=== PATIENT | female | born 1985 ===

== ENCOUNTER 2017-04-20 07:39 | Emergency (ER) | payer OTHER ==
[2017-04-20] MEDS ORDERED: Sodium Chloride 0.9% 1,000 ML IV STA (07:58)
[2017-04-20] MEDS ORDERED: Sodium Chloride 0.9% 1,000 ML ONE (08:05)
[2017-04-20 08:18] LABS: RBC URINE < 1 /hpf (0-3); URINE BILIRUBIN NEGATIVE (NEGATIVE); URINE BLOOD NEGATIVE (NEGATIVE); URINE COLOR Yellow (YELLOW); URINE GLUCOSE (UA) NORMAL (Normal); URINE KETONE NEGATIVE (NEGATIVE); URINE LEUKOCYTE ESTERASE NEG Leu/uL (Negative); URINE PROTEIN NEGATIVE (NEGATIVE); URINE UROBILINOGEN NORMAL mg/dL (0.2-1.0); WBC URINE 1 /hpf (0-5)
[2017-04-20 08:34] LABS: BASO % 0.4 % (0.0-2.0); EOS # 0.1 K/uL (0.0-0.7); EOS % 1.3 % (0.0-4.0); MEAN CELL VOLUME 88.7 fL (81.0-99.0); MEAN CORPUSCULAR HEMOGLOBIN 29.3 pg (27.0-31.0); MONO # 0.4 K/uL (0.0-0.8); RED CELL DISTRIBUTION WIDTH 12.6 % (11.5-14.5)
[2017-04-20 09:38] LABS: CHLORIDE 105 mmol/L (98-107); POTASSIUM 4.1 mmol/L (3.6-5.2); SODIUM 135 mmol/L (132-148)
[2017-04-20 09:40] LABS: BILIRUBIN,TOTAL 0.7 mg/dL (0.2-1.3); CARBON DIOXIDE 22 mmol/L (22-30); GFR AFRICAN-AMERICAN > 60
[2017-04-20 09:41] LABS: ALB/GLOB RATIO 1.3 (1.0-2.1); ALKALINE PHOSPHATASE 67 U/L (38-126); ALT/SGPT 32 U/L (9-52); AST/SGOT 20 U/L (14-36); BLOOD UREA NITROGEN 11 mg/dL (7-17); CALCIUM 8.1 mg/dl (8.6-10.4); GLUCOSE,RANDOM 81 mg/dL (65-105); TOTAL PROTEIN 6.9 g/dL (6.3-8.3)
[2017-04-20 09:57] VITALS: RESP 18; O2SAT 100
--- NOTE | 2017-04-20 11:23 | C.PDOC ---
History Of Present Illness 31 year old female presents to the ED for evaluation of nausea, vomiting, and upper abdominal pain since last night. 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 No other acute complaint at this time. Chief Complaint (Nursing): Abdominal Pain History Per: Patient History/Exam Limitations: no limitations Onset/Duration Of Symptoms: Hrs Location Of Pain/Discomfort: Epigastric Associated Symptoms: Nausea, Vomiting Past Medical History Reviewed: Historical Data, Nursing Documentation, Vital Signs Vital Signs: Last Vital Signs Temp 98.6 F 04/20/17 11:30 Pulse 69 04/20/17 11:30 Resp 18 04/20/17 11:30 BP 105/68 04/20/17 11:30 Pulse Ox 100 04/20/17 15:49 Family History: States: Unknown Family Hx - Social History Hx Alcohol Use: No Hx Substance Use: No - Immunization History Hx Influenza Vaccination: No Review Of Systems Constitutional: Negative for: Fever Gastrointestinal: Positive for: Nausea, Vomiting, Abdominal Pain Physical Exam - Physical Exam Appears: Non-toxic, No Acute Distress Skin: Normal Color, Warm, Dry Head: Atraumatic, Normacephalic Eye(s): bilateral: Normal Inspection, PERRL, EOMI Cardiovascular: Rhythm Regular (Regular Rate) Respiratory: Normal Breath Sounds Gastrointestinal/Abdominal: Soft, Tenderness (epigastric tenderness), No Guarding, No Rebound Neurological/Psych: Oriented x3, Normal Speech ED Course And Treatment - Laboratory Results Result Diagrams: 04/20/17 08:22 04/20/17 09:25 O2 Sat by Pulse Oximetry: 100 Medical Decision Making Medical Decision Makin04/20/17 08:00 Patient given IV fluids, zofran, and protonix On re-exam patient is feeling improved. Will discharge home. Disposition - Disposition Disposition: HOME/ ROUTINE Disposition Time: 11:36 Condition: IMPROVED Additional Instructions: Follow up with PMD within 1-2 days. Return to ED if feel worse. Prescriptions: Famotidine [Pepcid] 20 mg PO BID #20 tab Ondansetron ODT [Zofran ODT] 4 mg PO .Q4-6H PRN #20 odt PRN Reason: Nausea/Vomiting Instructions: Acute Abdominal Pain (ED) Forms: [employer] (Slovenian), Work Excuse - Clinical Impression Clinical Impression: Abdominal pain, Nausea, Vomiting - Scribe Statement The provider has reviewed the documentation as recorded by the Scribleah Barton
[2017-04-20 11:31] VITALS: BP 105/68; PULSE 69; TEMP 98.6
--- NOTE | 2017-04-20 13:13 | RAD ---
PROCEDURE: Radiographs of the chest and abdomen (obstructive series) HISTORY: vomiting COMPARISON: No prior. TECHNIQUE: AP radiograph of the chest, with upright and supine radiographs of the abdomen. FINDINGS: CHEST: Lungs: Clear. Cardiovascular: Normal size heart. No pulmonary vascular congestion. Pleura: No pleural fluid. No pneumothorax. Other findings: None. ABDOMEN AND PELVIS: Bowel: Unremarkable bowel gas pattern. No evidence of mechanical obstruction. Free air: None. Bones: Unremarkable. Other findings: None. IMPRESSION: Unremarkable radiographs of chest and abdomen. No evidence of mechanical bowel obstruction.
== END 2017-04-20 11:46 | disposition home or self-care (01) ==
LOC: C.ER 07:39
DX: R10.9 Unspecified abdominal pain (principal); R11.2 Nausea with vomiting, unspecified
CPT/HCPCS: 74022; 80053; 81001; 83690; 84703; 85025; 96361; 96374; 96375; 99285; C9113; J2405; J7040

== ENCOUNTER 2017-04-23 09:37 | Emergency (ER) | payer OTHER ==
[2017-04-23 09:53] VITALS: TEMP 98; O2SAT 100
[2017-04-23] MEDS ORDERED: Silver Sulfadiazine 1% Cream (20 gm) TOP STA (10:26)
[2017-04-23] MEDS ORDERED: Naproxen 550 mg Tab PO STA (10:26)
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
[2017-04-23] MEDS ORDERED: Naproxen 550 mg Tab PO ONE (10:31)
[2017-04-23 11:14] VITALS: BP 110/68; PULSE 69; RESP 20
== END 2017-04-23 11:14 | disposition home or self-care (01) ==
LOC: C.ER 09:37
DX: T23.141A Burn of first degree of multiple right fingers (nail), including thumb, initial encounter (principal); X08.8XXA Exposure to other specified smoke, fire and flames, initial encounter

== ENCOUNTER 2017-12-21 21:36 | Emergency (ER) | payer OTHER ==
[2017-12-21] MEDS ORDERED: Sodium Chloride 0.9% 1,000 ML IV ONE (22:07)
--- NOTE | 2017-12-21 22:07 | C.PDOC ---
History Of Present Illness patient presents with right lower quadrant discomfort , dysuria,since yesterday. No f/c/n/v. Dull, aching discomfort. Tolerating po. No change in bowel habits Time Seen by Provider: 12/21/17 22:07 Chief Complaint (Nursing): Abdominal Pain History Per: Patient History/Exam Limitations: no limitations Onset/Duration Of Symptoms: Days Current Symptoms Are (Timing): Still Present Context: Other Severity: Moderate Pain Scale Rating Of: 4 Location Of Pain/Discomfort: RLQ Radiation Of Pain To:: None Quality Of Discomfort: Dull, Cramping Associated Symptoms: denies: Fever, Chills Exacerbating Factors: None Alleviating Factors: None Last Bowel Movement: Today Recent travel outside of the [place]: No Additional History Per: Patient Abnormal Vaginal Bleeding: No Past Medical History Reviewed: Historical Data, Nursing Documentation, Vital Signs Vital Signs: Last Vital Signs Temp 98.8 F 12/22/17 01:17 Pulse 77 12/22/17 01:17 Resp 16 12/22/17 01:17 BP 110/70 12/22/17 01:17 Pulse Ox 100 12/22/17 01:22 - Medical History PMH: Denies: Chronic Kidney Disease Family History: States: Unknown Family Hx - Social History Hx Alcohol Use: Yes Hx Substance Use: No - Immunization History Hx Tetanus Toxoid Vaccination: No Hx Influenza Vaccination: No Hx Pneumococcal Vaccination: No Review Of Systems Constitutional: Negative for: Fever, Chills Cardiovascular: Negative for: Chest Pain Respiratory: Negative for: Shortness of Breath Gastrointestinal: Positive for: Abdominal Pain. Negative for: Nausea Genitourinary: Positive for: Dysuria Musculoskeletal: Negative for: Back Pain Skin: Negative for: Rash Neurological: Negative for: Weakness Psych: Negative for: Anxiety Physical Exam - Physical Exam Appears: Non-toxic, No Acute Distress Skin: Warm, Dry Head: Normacephalic Eye(s): bilateral: Normal Inspection Oral Mucosa: Moist Neck: Supple Chest: Symmetrical Cardiovascular: Rhythm Regular Respiratory: No Rales, No Rhonchi, No Wheezing Gastrointestinal/Abdominal: Soft, Tenderness (rlq), No Distention, No Guarding, No Rebound Back: Normal Inspection Extremity: Normal ROM Extremity: Bilateral: Atraumatic Pulses: Left Dorsalis Pedis: Normal, Right Dorsalis Pedis: Normal Neurological/Psych: Oriented x3 Gait: Steady ED Course And Treatment - Laboratory Results Result Diagrams: 12/21/17 22:25 12/21/17 22:25 O2 Sat by Pulse Oximetry: 100 Pulse Ox Interpretation: Normal Progress Note: pt was seen by the residential sales consultant. spoke with the patient at length regarding the labs and ct scan results. Pt wants to go home and will return if symtoms recur. Encouraged to return in 12-24 hours if she develops pain, fever, chills or just not feeling much better. patient is in agreement with the treatment plan Reevaluation Time: 02:36 Reassessment Condition: Improved Disposition Counseled Patient/Family Regarding: Studies Performed, Diagnosis, Need For Followup, Rx Given - Disposition Referrals: [facility] [facility] [Outside] [facility] [Outside] Erick Aguirre MD [Staff Provider] - Disposition: HOME/ ROUTINE Disposition Time: 22:07 Condition: FAIR Additional Instructions: Please return within 12-24 hours if not feeling better or the pain recurs Prescriptions: metroNIDAZOLE IV 500 mg/100 ml [Flagyl IV] 500 mg IV QID #28 bag Naproxen [Naprosyn] 1 tab PO BID PRN #25 tab PRN Reason: Pain Instructions: Acute Abdomen (Belly Pain), Adult (DC) Forms: [facility] (Urdu), Work Excuse - Clinical Impression Clinical Impression: Abdominal pain
[2017-12-21 22:09] LABS: HCG,QUALITATIVE URINE NEGATIVE (NEGATIVE)
[2017-12-21 22:11] LABS: SQUAMOUS EPITHIAL < 1 /hpf (0-5); URINE BILIRUBIN NEGATIVE (NEGATIVE); URINE BLOOD NEGATIVE (NEGATIVE); URINE CLARITY Clear (Clear); URINE COLOR Amber (YELLOW); URINE GLUCOSE (UA) NORMAL (Normal); URINE LEUKOCYTE ESTERASE NEG Leu/uL (Negative); URINE PROTEIN NEGATIVE (NEGATIVE)
[2017-12-21 22:27] LABS: BASO # 0.1 K/uL (0.0-0.2); BASO % 0.6 % (0.0-2.0); EOS % 0.1 % (0.0-4.0); HEMOGLOBIN 12.2 g/dL (11.0-16.0); LYMPH % 13.6 % (20.0-40.0); MEAN CORPUSCULAR HEMOGLOBIN 28.8 pg (27.0-31.0); MEAN CORPUSCULAR HGB CONC 33.1 g/dL (33.0-37.0); MEAN PLATELET VOLUME 8.2 fL (7.2-11.7); MONO # 0.6 K/uL (0.0-0.8); NEUT # 11.9 K/uL (1.8-7.0); NEUT % 81.7 % (50.0-75.0); RBC 4.25 Mil/uL (3.80-5.20); RED CELL DISTRIBUTION WIDTH 12.5 % (11.5-14.5); WHITE BLOOD COUNT 14.5 K/uL (4.8-10.8)
[2017-12-21] MEDS ORDERED: Piperacillin/Tazobact 3.375 gm 100 ML IVPB STA (22:31)
[2017-12-21] MEDS ORDERED: Sodium Chloride 0.9% 1,000 ML ONE (22:32)
[2017-12-21 22:40] LABS: ALB/GLOB RATIO 1.4 (1.0-2.1); ALBUMIN 4.4 g/dL (3.5-5.0); ALT/SGPT 25 U/L (9-52); AST/SGOT 23 U/L (14-36); BLOOD UREA NITROGEN 10 mg/dL (7-17); CALCIUM 9.3 mg/dl (8.6-10.4); GFR AFRICAN-AMERICAN > 60; GFR NON-AFRICAN AMERICAN > 60; LIPASE 52 U/L (23-300)
[2017-12-21 22:42] LABS: VENOUS BLOOD GAS BASE EXCESS 1.7 mmol/L (0.0-2.0); VENOUS BLOOD GAS PCO2 45 mmHg (40-60); VENOUS BLOOD GAS PO2 21 mm/Hg (30-55); VENOUS BLOOD PH 7.39 (7.32-7.43)
[2017-12-21] MEDS ORDERED: Piperacillin/Tazobact 3.375 gm 100 ML IVPB ONE (22:43)
[2017-12-21] MEDS ORDERED: Iohexol 350mg/ml 100 ML ONE (22:53)
[2017-12-22 01:18] VITALS: RESP 16
[2017-12-22] MEDS ORDERED: Sodium Chloride 0.9% 500 ML IV ONE ×2 (01:27→01:32)
[2017-12-22] MEDS ORDERED: Magnesium Citrate Oral SOL (300 ml) PO ONE (02:48)
[2017-12-22 02:49] VITALS: BP 104/68; PULSE 66; TEMP 97.8; O2SAT 99
[2017-12-22] MEDS ORDERED: Magnesium Citrate Oral SOL (300 ml) ONE (02:52)
--- NOTE | 2017-12-22 09:14 | CT ---
PROCEDURE: CT Abdomen and Pelvis with contrast HISTORY: rlq and pain COMPARISON: None. TECHNIQUE: Contrast dose: 100 mL Omnipaque 350 Radiation dose: Total exam DLP = 331.82 mGy-cm. This CT exam was performed using one or more of the following dose reduction techniques: Automated exposure control, adjustment of the mA and/or kV according to patient size, and/or use of iterative reconstruction technique. FINDINGS: LOWER THORAX: Unremarkable. LIVER: Unremarkable. No gross lesion or ductal dilatation. GALLBLADDER AND BILE DUCTS: Unremarkable. PANCREAS: Unremarkable. No gross lesion or ductal dilatation. SPLEEN: Unremarkable. ADRENALS: Unremarkable. No mass. KIDNEYS AND URETERS: Unremarkable. No hydronephrosis. No solid mass. VASCULATURE: Unremarkable. No aortic aneurysm. BOWEL: Unremarkable. No obstruction. No gross mural thickening. APPENDIX: Not visualized. No secondary findings. There is very mild stranding or ill-defined increased attenuation of the mesenteric fat distal to the cecal apex, uncertain significance. In the absence of a distended appendix, this is not likely significant for acute appendicitis. PERITONEUM: Unremarkable. No free fluid. No free air. LYMPH NODES: No retroperitoneal or pelvic lymphadenopathy. There are shotty subcentimeter lymph nodes seen in the small bowel mesenteric and medial to the cecum/ascending colon. This may reflect a nonspecific mesenteric adenitis. Correlate clinically. BLADDER: Unremarkable. REPRODUCTIVE: Normal uterus BONES: No acute fracture. OTHER FINDINGS: None. IMPRESSION: Possible mesenteric adenitis. Mild stranding of the fat distal to the cecal apex without evidence of a distended appendix. Appendix not identified. No other significant abnormality is identified. Preliminary interpretation of this examination was reported by [employer] at 12:56 a.m. on 12/22/2017. There is discordance of this report with the preliminary interpretation. Mesenteric adenitis was not discussed in the preliminary report of this examination.
== END 2017-12-22 03:01 | disposition home or self-care (01) ==
LOC: C.ER 21:36
DX: R10.31 Right lower quadrant pain (principal)
CPT/HCPCS: 74177; 80053; 81001; 82803; 83690; 84703; 85025; 87086; 96365; 96375; 99285; J1885; J2270; J2405; J2543; J7030; J7040; Q9967

== ENCOUNTER 2017-12-22 17:00 | Inpatient (IN) | payer OTHER ==
[2017-12-22 18:09] LABS: BASO % 0.3 % (0.0-2.0); EOS # 0.1 K/uL (0.0-0.7); EOS % 0.9 % (0.0-4.0); LYMPH # 2.1 K/uL (1.0-4.3); LYMPH % 26.1 % (20.0-40.0); MEAN CELL VOLUME 87.4 fL (81.0-99.0); MEAN CORPUSCULAR HGB CONC 33.2 g/dL (33.0-37.0); MEAN PLATELET VOLUME 8.9 fL (7.2-11.7); MONO # 0.4 K/uL (0.0-0.8); MONO % 5.2 % (0.0-10.0); NEUT # 5.4 K/uL (1.8-7.0); NEUT % 67.5 % (50.0-75.0); NRBC % 0.1 % (0.0-2.0); RBC 4.14 Mil/uL (3.80-5.20); RED CELL DISTRIBUTION WIDTH 12.2 % (11.5-14.5)
[2017-12-22 18:21] LABS: INR 1.2; PROTHROMBIN TIME 13.5 SECONDS (9.7-12.2)
--- NOTE | 2017-12-22 18:25 | C.PDOC ---
History Of Present Illness <Jorge Escalante - Last Filed: 12/22/17 18:22> <Cathi Duong - Last Filed: 12/22/17 22:20> 32 y/o F p/w abdominal pain x 2 days. Pain is RLQ, associated with nausea. Was in this ED yesterday, had CT and seen by Surgery for possible appendicitis. Patient wished to go home, pain became worse with worsening nausea and she returned. Denies fever, dysuria, vomiting. (Jorge Escalante) <Jorge Escalante - Last Filed: 12/22/17 18:22> <Cathi Duong - Last Filed: 12/22/17 22:20> Time Seen by Provider: 12/22/17 17:22 Chief Complaint (Nursing): Abdominal Pain Past Medical History - Medical History PMH: Denies: Chronic Kidney Disease Family History: States: Unknown Family Hx - Social History Hx Alcohol Use: No Hx Substance Use: No - Immunization History Hx Tetanus Toxoid Vaccination: No Hx Influenza Vaccination: No Hx Pneumococcal Vaccination: No <Jorge Escalante - Last Filed: 12/22/17 18:22> Vital Signs: Last Vital Signs Temp 98.4 F 12/22/17 17:06 Pulse 75 12/22/17 17:06 Resp 20 12/22/17 17:06 BP 115/75 12/22/17 17:06 Pulse Ox 100 12/22/17 18:25 Review Of Systems Except As Marked, All Systems Reviewed And Found Negative. Constitutional: Negative for: Fever Cardiovascular: Negative for: Chest Pain <Jorge Escalante - Last Filed: 12/22/17 18:22> Physical Exam <Jorge Escalante - Last Filed: 12/22/17 18:22> <Cathi Duong - Last Filed: 12/22/17 22:20> - Physical Exam Additional Physical Exam Comments: Gen: NAD Head: NC/AT Eyes: No scleral icterus ENT: MMM Neck: Supple Chest: No tenderness CV: Regular rate Lungs: CTA b/l Abd: RLQ tenderness with guarding Back: No CVA tenderness Extremities: No edema Skin: No rash Neuro: Alert, no focal deficit (Jorge Escalante) ED Course And Treatment - Laboratory Results Result Diagrams: 12/22/17 18:05 O2 Sat by Pulse Oximetry: 100 <Jorge Escalante - Last Filed: 12/22/17 18:22> - Laboratory Results Result Diagrams: 12/22/17 18:05 12/22/17 18:05 <RhodaCathi - Last Filed: 12/22/17 22:20> Medical Decision Making <Jorge Escalante - Last Filed: 12/22/17 18:22> <Cathi Duong - Last Filed: 12/22/17 22:20> Medical Decision Making: Will repeat labs. CT from yesterday did not show appendix and showed possible appendicitis. vice president global advertising sales called for re-evaluation. Will sign out to ED night team. (Jorge Escalante) Disposition <Jorge Escalante - Last Filed: 12/22/17 18:22> Discussed With .: Koki Boss Comment: accepted the pt on his service and took over the care at 10:15 PM Doctor Will See Patient In The: Hospital Counseled Patient/Family Regarding: Studies Performed, Diagnosis - Disposition Disposition Time: 19:00 - POA Present On Arrival: None <Cathi Duong - Last Filed: 12/22/17 22:20> - Disposition Disposition: HOSPITALIZED Condition: FAIR Forms: [facility] ([place]) - Clinical Impression Clinical Impression: Diarrhea, Abdominal pain, Nausea, Vomiting Decision To Admit <Jorge Escalante - Last Filed: 12/22/17 18:22> - Pt Status Changed To: Hospital Disposition Of: Inpatient - Admit Certification Admit to Inpatient:: After my assessment, the patient will require hospitalization for at least two midnights. This is because of the severity of symptoms shown, intensity of services needed, and/or the medical risk in this patient being treated as an outpatient. - InPatient: Physician Admission Certification:: After my assessment, the patient will require hospitalization for at least two midnights. This is because of the severity of symptoms shown, intensity of services needed, and/or the medical risk in this patient being treated as an outpatient. - . Bed Request Type: Regular Admitting Physician: Koki Boss <Cathi Duong - Last Filed: 12/22/17 22:20> - . Patient Diagnosis: Diarrhea, Abdominal pain, Nausea, Vomiting
[2017-12-22 18:31] LABS: ALB/GLOB RATIO 1.3 (1.0-2.1); ALBUMIN 4.2 g/dL (3.5-5.0); ALT/SGPT 29 U/L (9-52); AST/SGOT 29 U/L (14-36); BLOOD UREA NITROGEN 7 mg/dL (7-17); CALCIUM 7.8 mg/dl (8.6-10.4); GFR AFRICAN-AMERICAN > 60; GFR NON-AFRICAN AMERICAN > 60
[2017-12-22 18:32] LABS: SQUAMOUS EPITHIAL 4 /hpf (0-5); URINE BACTERIA RARE (<OCC); URINE BILIRUBIN NEGATIVE (NEGATIVE); URINE BLOOD NEGATIVE (NEGATIVE); URINE CLARITY Clear (Clear); URINE COLOR Straw (YELLOW); URINE GLUCOSE (UA) NORMAL (Normal); URINE LEUKOCYTE ESTERASE TRACE Leu/uL (Negative); URINE PROTEIN NEGATIVE (NEGATIVE); URINE UROBILINOGEN NORMAL mg/dL (0.2-1.0)
[2017-12-22] MEDS ORDERED: Iohexol 240 (50 ml) PO ONE (18:57)
[2017-12-22] MEDS ORDERED: Iohexol 240 (50 ml) ONE (19:14)
--- NOTE | 2017-12-22 19:36 | CP.PCM.CON ---
Addendum entered and electronically signed by Dano Jonas DO 12/23/17 04:09: Repeat CT scan: Normal appendix Fluid in colon suggesting diarrhea No surgical intervention as this time Fei Jonas, PGY2 Original Note: <Dano Jonas - Last Filed: 12/22/17 19:51> History of Present Illness - History of Present Illness History of Present Illness: SURGERY CONSULT NOTE FOR DR. HUBBARD 32F presents to ED for second time in 2 days for abdominal pain. Patient states pain started yesterday and is located around the umbilicus and in the right lower quadrant. Patient states pain got better during her first ER visit but return suddenly while at home. She states she ate food today earlier in the afternoon but that made her nauseous. She states she did vomiting once at home and once in ED. She denies any fevers, chills. She admits to one bout of diarrhea while at home in the AM. She admitted mild pain on urination, denies burning, change in urine texture, denies cloudy urine. She states at last menstrual period was December 11. PMH: Denies PSH: *3 Social: denies tobacco, alcohol use Allergies: as per chart Past Patient History - Infectious Disease Hx of Infectious Diseases: None - Past Social History Smoking Status: Never Smoked - CARDIAC Hx Cardiac Disorders: No - PULMONARY Hx Respiratory Disorders: No - NEUROLOGICAL Hx Neurological Disorder: No - HEENT Hx HEENT Problems: No - RENAL Hx Chronic Kidney Disease: No - ENDOCRINE/METABOLIC Hx Endocrine Disorders: No - HEMATOLOGICAL/ONCOLOGICAL Hx Blood Disorders: No - INTEGUMENTARY Hx Dermatological Problems: No - MUSCULOSKELETAL/RHEUMATOLOGICAL Hx Musculoskeletal Disorders: No - GASTROINTESTINAL Hx Gastrointestinal Disorders: No - GENITOURINARY/GYNECOLOGICAL Hx Genitourinary Disorders: No - PSYCHIATRIC Hx Substance Use: No - SURGICAL HISTORY Hx Surgeries: Yes Hx Section: Yes (x3) - ANESTHESIA Hx Anesthesia: Yes Hx Anesthesia Reactions: No Meds Allergies/Adverse Reactions: Allergies Allergy/AdvReac Type Severity Reaction Status Date / Time pineapple Allergy ITCHING Verified 12/21/17 21:54 shrimp Allergy Verified 12/22/17 17:10 terbutaline Allergy ITCHING Verified 12/21/17 21:54 Physical Exam - Constitutional Appears: Non-toxic, No Acute Distress, Other (drowsy due to pain medication) - Eye Exam Eye Exam: EOMI, PERRL - ENT Exam ENT Exam: Mucous Membranes Moist - Respiratory Exam Respiratory Exam: Clear to Auscultation Bilateral, NORMAL BREATHING PATTERN - Cardiovascular Exam Cardiovascular Exam: REGULAR RHYTHM, +S1, +S2 - GI/Abdominal Exam GI & Abdominal Exam: Soft, Tenderness (mainly in the umbilical/suprapubic/RLQ region). absent: Distended, Firm, Guarding, Rebound, Rigid - Extremities Exam Extremities exam: Negative for: pedal edema, tenderness - Neurological Exam Neurological exam: Alert, Oriented x3 - Psychiatric Exam Psychiatric exam: Normal Affect, Normal Mood - Skin Skin Exam: Dry, Intact, Normal Color, Warm Results - Vital Signs Recent Vital Signs: Last Vital Signs Temp 98.4 F 12/22/17 17:06 Pulse 75 12/22/17 17:06 Resp 20 12/22/17 17:06 BP 115/75 12/22/17 17:06 Pulse Ox 100 12/22/17 18:25 - Labs Result Diagrams: 12/22/17 18:05 12/22/17 18:05 Labs: Laboratory Results - last 24 hr 12/22/17 12/22/17 12/22/17 18:05 18:05 18:05 WBC 8.0 RBC 4.14 Hgb 12.0 Hct 36.2 MCV 87.4 MCH 29.0 MCHC 33.2 RDW 12.2 Plt Count 289 MPV 8.9 Neut % (Auto) 67.5 Lymph % (Auto) 26.1 Mcintosh % (Auto) 5.2 Eos % (Auto) 0.9 Baso % (Auto) 0.3 Neut # (Auto) 5.4 Lymph # (Auto) 2.1 Mcintosh # (Auto) 0.4 Eos # (Auto) 0.1 Baso # (Auto) 0.0 PT 13.5 H INR 1.2 APTT 39 H Sodium 140 Potassium 4.1 Chloride 107 Carbon Dioxide 24 Anion Gap 14 BUN 7 Creatinine 0.7 Est GFR ( Amer) > 60 Est GFR (Non-Af Amer) > 60 Random Glucose 78 Calcium 7.8 L Total Bilirubin 0.8 AST 29 ALT 29 Alkaline Phosphatase 53 Total Protein 7.3 Albumin 4.2 Globulin 3.1 Albumin/Globulin Ratio 1.3 Urine Color Urine Clarity Urine pH Ur Specific Bradshaw Urine Protein Urine Glucose (UA) Urine Ketones Urine Blood Urine Nitrate Urine Bilirubin Urine Urobilinogen Ur Leukocyte Esterase Urine WBC (Auto) Ur Squamous Epith Cells Urine Bacteria Blood Type 12/22/17 12/22/17 18:05 18:15 WBC RBC Hgb Hct MCV MCH MCHC RDW Plt Count MPV Neut % (Auto) Lymph % (Auto) Mcintosh % (Auto) Eos % (Auto) Baso % (Auto) Neut # (Auto) Lymph # (Auto) Mcintosh # (Auto) Eos # (Auto) Baso # (Auto) PT INR APTT Sodium Potassium Chloride Carbon Dioxide Anion Gap BUN Creatinine Est GFR ( Amer) Est GFR (Non-Af Amer) Random Glucose Calcium Total Bilirubin AST ALT Alkaline Phosphatase Total Protein Albumin Globulin Albumin/Globulin Ratio Urine Color Straw Urine Clarity Clear Urine pH 8.0 Ur Specific Bradshaw 1.004 Urine Protein Negative Urine Glucose (UA) Normal Urine Ketones Negative Urine Blood Negative Urine Nitrate Negative Urine Bilirubin Negative Urine Urobilinogen Normal Ur Leukocyte Esterase Trace Urine WBC (Auto) 4 Ur Squamous Epith Cells 4 Urine Bacteria Rare Blood Type O POSITIVE Assessment & Plan - Assessment and Plan (Free Text) Assessment: 32F with abdominal pain, r/o appendicitis CT: mesenteric adenitis with mild inflammation around cecum, appendix not visualize Avarado score:4 Plan: NPO, IVF Pain control Nausea control Antibiotics Serial abdominal exam Discussed with Dr. Stevie Jonas, PGY2 <Romulo Hubbard - Last Filed: 12/24/17 17:34> Results - Vital Signs Recent Vital Signs: Last Vital Signs Temp 98.2 F 12/24/17 07:00 Pulse 68 12/24/17 07:00 Resp 20 12/24/17 07:00 BP 95/59 L 12/24/17 07:00 Pulse Ox 99 12/24/17 07:00 - Labs Result Diagrams: 12/22/17 18:05 12/22/17 18:05 Attending/Attestation - Attestation I have personally seen and examined this patient.: Yes I have fully participated in the care of the patient.: Yes I have reviewed all pertinent clinical information: Yes Notes (Text): Pt was seen and examined at bedside Agree with above note and assessment Pt with Abdominal pain and CT scan findings of mesenteric Adenitis Abdomen: soft, tender, No peritoneal signs Labs and radiology reviewed. Ass: Mesenteric Adenitis Plan: C.w IV antibiotics No surgical intervention required at present Plan d.w pt in detail Risk and benefit explained in detail.
[2017-12-22] MEDS ORDERED: Morphine 4 MG/ML VIAL ONE (21:39)
[2017-12-22] MEDS ORDERED: Dextrose 5%-0.225% NS 1,000 ML IV ONE (22:45)
[2017-12-22] MEDS: Dextrose 5%/0.45% NS 1,000 ML IV SCH (22:55)
--- NOTE | 2017-12-23 10:13 | CP.PCM.HP ---
Present on Admission - Present on Admission Any Indicators Present on Admission: No Review of Systems - Constitutional Constitutional: As Per HPI - EENT Eyes: As Per HPI Ears: As Per HPI Nose/Mouth/Throat: As Per HPI - Breasts Breasts: As Per HPI - Cardiovascular Cardiovascular: As Per HPI - Respiratory Respiratory: As Per HPI - Gastrointestinal Gastrointestinal: Abdominal Pain, Change in Bowel Habits, Nausea, Vomiting Additional comments: rlq pain - Genitourinary Genitourinary: As Per HPI - Reproductive: Female Reproductive:Female: As Per HPI - Menstruation Menstruation: As Per HPI - Musculoskeletal Musculoskeletal: As Per HPI - Integumentary Integumentary: As Per HPI - Neurological Neurological: As Per HPI - Psychiatric Psychiatric: As Per HPI - Endocrine Endocrine: As Per HPI - Hematologic/Lymphatic Hematologic: As Per HPI Past Patient History - Infectious Disease Hx of Infectious Diseases: None - Past Medical History & Family History Past Medical History?: Yes - Past Social History Smoking Status: Never Smoked - CARDIAC Hx Cardiac Disorders: No - PULMONARY Hx Respiratory Disorders: No - NEUROLOGICAL Hx Neurological Disorder: No - HEENT Hx HEENT Problems: No - RENAL Hx Chronic Kidney Disease: No - ENDOCRINE/METABOLIC Hx Endocrine Disorders: No - HEMATOLOGICAL/ONCOLOGICAL Hx Blood Disorders: No - INTEGUMENTARY Hx Dermatological Problems: No - MUSCULOSKELETAL/RHEUMATOLOGICAL Hx Musculoskeletal Disorders: No Hx Falls: No - GASTROINTESTINAL Hx Gastrointestinal Disorders: No - GENITOURINARY/GYNECOLOGICAL Hx Genitourinary Disorders: No - PSYCHIATRIC Hx Psychophysiologic Disorder: No Hx Substance Use: No - SURGICAL HISTORY Hx Surgeries: Yes Hx Section: Yes (x3) - ANESTHESIA Hx Anesthesia: Yes Hx Anesthesia Reactions: No Meds Allergies/Adverse Reactions: Allergies Allergy/AdvReac Type Severity Reaction Status Date / Time pineapple Allergy ITCHING Verified 12/21/17 21:54 shrimp Allergy Verified 12/22/17 17:10 terbutaline Allergy ITCHING Verified 12/21/17 21:54 Physical Exam - Constitutional Appears: In Acute Distress - Head Exam Head Exam: ATRAUMATIC - Eye Exam Eye Exam: Normal appearance Pupil Exam: NORMAL ACCOMODATION - ENT Exam ENT Exam: Mucous Membranes Moist - Neck Exam Neck exam: Positive for: Full Rom - Respiratory Exam Respiratory Exam: Clear to Auscultation Bilateral - Cardiovascular Exam Cardiovascular Exam: REGULAR RHYTHM - GI/Abdominal Exam GI & Abdominal Exam: Tenderness Additional comments: rlq - Rectal Exam Rectal Exam: NORMAL INSPECTION - Extremities Exam Extremities exam: Positive for: normal inspection - Back Exam Back exam: NORMAL INSPECTION - Neurological Exam Neurological exam: Alert, Oriented x3 - Psychiatric Exam Psychiatric exam: Normal Mood - Skin Skin Exam: Normal Color Results - Vital Signs Recent Vital Signs: Last Vital Signs Temp 97.5 F L 12/23/17 07:30 Pulse 56 L 12/23/17 07:30 Resp 18 12/23/17 07:30 BP 104/67 12/23/17 07:30 Pulse Ox 97 12/23/17 07:30 - Labs Result Diagrams: 12/22/17 18:05 12/22/17 18:05 Labs: Laboratory Results - last 24 hr 12/22/17 12/22/17 12/22/17 18:05 18:05 18:05 WBC 8.0 RBC 4.14 Hgb 12.0 Hct 36.2 MCV 87.4 MCH 29.0 MCHC 33.2 RDW 12.2 Plt Count 289 MPV 8.9 Neut % (Auto) 67.5 Lymph % (Auto) 26.1 [place] % (Auto) 5.2 Eos % (Auto) 0.9 Baso % (Auto) 0.3 Neut # (Auto) 5.4 Lymph # (Auto) 2.1 [place] # (Auto) 0.4 Eos # (Auto) 0.1 Baso # (Auto) 0.0 PT 13.5 H INR 1.2 APTT 39 H Sodium 140 Potassium 4.1 Chloride 107 Carbon Dioxide 24 Anion Gap 14 BUN 7 Creatinine 0.7 Est GFR ( Amer) > 60 Est GFR (Non-Af Amer) > 60 Random Glucose 78 Calcium 7.8 L Total Bilirubin 0.8 AST 29 ALT 29 Alkaline Phosphatase 53 Total Protein 7.3 Albumin 4.2 Globulin 3.1 Albumin/Globulin Ratio 1.3 Urine Color Urine Clarity Urine pH Ur Specific [place] Urine Protein Urine Glucose (UA) Urine Ketones Urine Blood Urine Nitrate Urine Bilirubin Urine Urobilinogen Ur Leukocyte Esterase Urine WBC (Auto) Ur Squamous Epith Cells Urine Bacteria Blood Type Antibody Screen 12/22/17 12/22/17 18:05 18:15 WBC RBC Hgb Hct MCV MCH MCHC RDW Plt Count MPV Neut % (Auto) Lymph % (Auto) [place] % (Auto) Eos % (Auto) Baso % (Auto) Neut # (Auto) Lymph # (Auto) [place] # (Auto) Eos # (Auto) Baso # (Auto) PT INR APTT Sodium Potassium Chloride Carbon Dioxide Anion Gap BUN Creatinine Est GFR ( Amer) Est GFR (Non-Af Amer) Random Glucose Calcium Total Bilirubin AST ALT Alkaline Phosphatase Total Protein Albumin Globulin Albumin/Globulin Ratio Urine Color Straw Urine Clarity Clear Urine pH 8.0 Ur Specific [place] 1.004 Urine Protein Negative Urine Glucose (UA) Normal Urine Ketones Negative Urine Blood Negative Urine Nitrate Negative Urine Bilirubin Negative Urine Urobilinogen Normal Ur Leukocyte Esterase Trace Urine WBC (Auto) 4 Ur Squamous Epith Cells 4 Urine Bacteria Rare Blood Type O POSITIVE Antibody Screen Negative Assessment & Plan - Assessment and Plan (Free Text) Assessment: ac abd pain rlq vomiting possible apendicitis Plan: as pe3r orders - Date & Time Date: 12/23/17 Time: 10:18
--- NOTE | 2017-12-23 10:52 | CT ---
PROCEDURE: CT abdomen pelvis 12/22/2017 HISTORY: Abdominal pain COMPARISON: Comparison made with CT scan abdomen pelvis 12/21/2017 TECHNIQUE: Contiguous helical/transaxial images of the abdomen and pelvis. Oral contrast was administered. No IV contrast given. Coronal and Sagittal reformats generated. This CT exam was performed using one or more of the following dose reduction techniques: Automated exposure control, adjustment of the mA and/or kV according to patient size, and/or use of iterative reconstruction technique. Radiation dose: Total exam DLP = 365.9 mGy-cm. This CT exam was performed using one or more of the following dose reduction techniques: Automated exposure control, adjustment of the mA and/or kV according to patient size, and/or use of iterative reconstruction technique. . FINDINGS: LOWER THORAX: Heart size normal. No significant pericardial effusion. Minor bibasilar atelectasis. Tiny bleb left medial lung base. No evidence of effusion or basilar pneumothorax LIVER: Unremarkable. No gross lesion or ductal dilatation. GALLBLADDER AND BILE DUCTS: Unremarkable. PANCREAS: Unremarkable. No mass. No ductal dilatation. SPLEEN: Unremarkable. No splenomegaly. ADRENALS: Unremarkable. KIDNEYS AND URETERS: Unremarkable. No stone or hydronephrosis. BLADDER: Grossly unremarkable. REPRODUCTIVE: Unremarkable. APPENDIX: What is felt to represent normal appendix best seen on coronal sequence image number [id number]. No periappendiceal inflammatory changes. BOWEL: Evaluation of the bowel is limited due to incomplete opacification. Stomach is distended with oral contrast material some food debris. Visualized loops of small bowel exhibit relatively normal contour caliber. Fluid is present within splenic flexure descending sigmoid colon suggesting diarrheal illness. PERITONEUM: Unremarkable. No fluid collection. No free air. LYMPH NODES: Unremarkable. No enlarged lymph nodes. VASCULATURE: Unremarkable. No aortic aneurysm. BONES: No fracture or destructive lesion. OTHER FINDINGS: None. IMPRESSION: Findings suggestive of diarrheal illness as above. No evidence of acute appendicitis.
[2017-12-23] MEDS: Dextrose 5%/0.45% NS 1,000 ML IV SCH (14:29)
[2017-12-23 15:58] VITALS: RESP 20
--- NOTE | 2017-12-23 16:36 | CP.PCM.PN ---
<Yon Branham - Last Filed: 12/23/17 16:32> Subjective - Date & Time of Evaluation Date of Evaluation: 12/23/17 Time of Evaluation: 16:32 - Subjective Subjective: General Surgery Progress Note for Dr. Hubbard This 32F was seen and evaluated this AM at bedside complaining of continued abdominal pain. Reports nausea denies vomiting. Denies any chest pain or SOB. Objective - Vital Signs/Intake and Output Vital Signs (last 24 hours): Temp Pulse Resp BP Pulse Ox 98.1 F 65 20 98/59 L 97 12/23/17 15:30 12/23/17 15:30 12/23/17 15:30 12/23/17 15:30 12/23/17 15:30 Intake and Output: 12/23/17 12/23/17 06:59 18:59 Intake Total 740 Balance 740 - Medications Medications: Current Medications Ceftriaxone Sodium 1 gm/ (Sodium Chloride) 100 mls @ 100 mls/hr IVPB DAILY SARA PRN Reason: Protocol Last Admin: 12/23/17 10:24 Dose: 100 mls/hr Dextrose/Sodium Chloride (Dextrose 5%/0.45% Ns 1000 Ml) 1,000 mls @ 80 mls/hr IV .[id number] SARA Last Admin: 12/23/17 14:29 Dose: 80 mls/hr Ketorolac Tromethamine (Toradol) 15 mg IVP Q6 PRN PRN Reason: Pain, moderate (4-7) Last Admin: 12/23/17 05:45 Dose: 15 mg - Labs Labs: 12/22/17 18:05 12/22/17 18:05 PT 13.5 SECONDS (9.7-12.2) H 12/22/17 18:05 INR 1.2 12/22/17 18:05 APTT 39 SECONDS (21-34) H 12/22/17 18:05 - Constitutional Appears: Non-toxic - Head Exam Head Exam: ATRAUMATIC, NORMOCEPHALIC - Eye Exam Eye Exam: EOMI, Normal appearance - ENT Exam ENT Exam: Mucous Membranes Moist - Cardiovascular Exam Cardiovascular Exam: +S1, +S2 - GI/Abdominal Exam GI & Abdominal Exam: Soft, Tenderness. absent: Distended, Firm, Guarding, Rigid - Neurological Exam Neurological Exam: Alert, Awake - Psychiatric Exam Psychiatric exam: Normal Affect, Normal Mood - Skin Skin Exam: Dry, Intact Assessment and Plan - Assessment and Plan (Free Text) Assessment: 32F with abdominal pain CT: Normal appendix, liquid stool renewals representative of diarrheal illness Plan: Continue medical management per primary team No surgical intervention at this time D/W Dr. Stevie Branham PGY2 <Romulo Hubbard - Last Filed: 12/24/17 17:41> Objective - Vital Signs/Intake and Output Vital Signs (last 24 hours): Temp Pulse Resp BP Pulse Ox 98.2 F 68 20 95/59 L 99 12/24/17 07:00 12/24/17 07:00 12/24/17 07:00 12/24/17 07:00 12/24/17 07:00 - Labs Labs: 12/22/17 18:05 12/22/17 18:05 PT 13.5 SECONDS (9.7-12.2) H 12/22/17 18:05 INR 1.2 12/22/17 18:05 APTT 39 SECONDS (21-34) H 12/22/17 18:05 Attending/Attestation - Attestation I have personally seen and examined this patient.: Yes I have fully participated in the care of the patient.: Yes I have reviewed all pertinent clinical information, including history, physical exam and plan: Yes Notes (Text): Pt was seen and examined at bedside Agree with above note and assessment Pt is improving clinically c/w current mx No surgical intervention required at present f/u as out pt Plan d.w pt in detail Risk and benefit explained in detail.
[2017-12-23] MEDS: Piperacill/Tazo 3.375gm in Dex 3.375 GM/50 ML BAG IVPB SCH ×2 (18:03→23:57)
[2017-12-23] MEDS: metroNIDAZOLE IV 500 mg/100 ml 500 MG/100 ML BAG IVPB SCH (21:18)
[2017-12-24] MEDS: Dextrose 5%/0.45% NS 1,000 ML IV SCH ×3 (00:02→12:07)
[2017-12-24] MEDS: Piperacill/Tazo 3.375gm in Dex 3.375 GM/50 ML BAG IVPB SCH ×2 (05:08→11:41)
[2017-12-24] MEDS: metroNIDAZOLE IV 500 mg/100 ml 500 MG/100 ML BAG IVPB SCH (05:44)
[2017-12-24 08:44] VITALS: BP 95/59; PULSE 68; TEMP 98.2; O2SAT 99
--- NOTE | 2017-12-24 11:16 | CP.PCM.PN ---
Subjective - Date & Time of Evaluation Date of Evaluation: 12/24/17 Time of Evaluation: 11:14 - Subjective Subjective: feels beter no pain cleaed for d/c by erika Objective - Vital Signs/Intake and Output Vital Signs (last 24 hours): Temp Pulse Resp BP Pulse Ox 98.2 F 68 20 95/59 L 99 12/24/17 07:00 12/24/17 07:00 12/24/17 07:00 12/24/17 07:00 12/24/17 07:00 - Medications Medications: Current Medications Dextrose/Sodium Chloride (Dextrose 5%/0.45% Ns 1000 Ml) 1,000 mls @ 80 mls/hr IV .[id number] SARA Last Admin: 12/24/17 09:05 Dose: 80 mls/hr Metronidazole (Flagyl) 500 mg in 100 mls @ 100 mls/hr IVPB Q8 SARA PRN Reason: Protocol Last Admin: 12/24/17 05:44 Dose: 100 mls/hr Piperacillin Sod/Tazobactam Sod (Zosyn 3.375 Gm Iv Premix) 3.375 gm in 50 mls @ 200 mls/hr IVPB Q6H SARA PRN Reason: Protocol Last Admin: 12/24/17 05:08 Dose: 200 mls/hr Ketorolac Tromethamine (Toradol) 15 mg IVP Q6 PRN PRN Reason: Pain, moderate (4-7) Last Admin: 12/23/17 17:39 Dose: 15 mg - Labs Labs: 12/22/17 18:05 12/22/17 18:05 PT 13.5 SECONDS (9.7-12.2) H 12/22/17 18:05 INR 1.2 12/22/17 18:05 APTT 39 SECONDS (21-34) H 12/22/17 18:05 - Constitutional Appears: Non-toxic - Head Exam Head Exam: NORMAL INSPECTION - Eye Exam Eye Exam: Normal appearance Pupil Exam: NORMAL ACCOMODATION - ENT Exam ENT Exam: Mucous Membranes Moist - Neck Exam Neck Exam: Normal Inspection - Respiratory Exam Respiratory Exam: Clear to Ausculation Bilateral - Cardiovascular Exam Cardiovascular Exam: REGULAR RHYTHM - GI/Abdominal Exam GI & Abdominal Exam: Normal Bowel Sounds - Rectal Exam Rectal Exam: NORMAL INSPECTION - Exam Exam: NORMAL INSPECTION - Extremities Exam Extremities Exam: Normal Inspection - Back Exam Back Exam: NORMAL INSPECTION - Neurological Exam Neurological Exam: Oriented x3 - Psychiatric Exam Psychiatric exam: Normal Affect - Skin Skin Exam: Normal Color Assessment and Plan - Assessment and Plan (Free Text) Assessment: ac abd pain possible inflamed apedix improved Plan: will d/c on antibiotics f/u by her
== END 2017-12-24 13:03 | disposition home or self-care (01) | DRG 814 ==
LOC: C.ER 17:00 → C.9E 22:10 → C.6T 23:10
PROVIDERS: ADMIT Internal Medicine; ATTEND Internal Medicine
DX: R10.31 Right lower quadrant pain (principal); I88.0 Nonspecific mesenteric lymphadenitis

== ENCOUNTER 2018-02-15 06:49 | Emergency (ER) | payer OTHER ==
[2018-02-15 07:35] VITALS: BP 102/65; PULSE 67; RESP 18; TEMP 97.8; O2SAT 96
--- NOTE | 2018-02-15 10:28 | C.PDOC ---
History Of Present Illness 32 year old female presents to ED for evaluation of area of redness to her left cheek and left foot 5th digit that she noticed last night. Denies drainage from wound, fever, chills, or any other associated symptoms at this time. Notes she sleeps with her room window open at night. Time Seen by Provider: 02/15/18 07:09 Chief Complaint (Nursing): Allergic Reaction History Per: Patient History/Exam Limitations: no limitations Onset/Duration Of Symptoms: Days Current Symptoms Are (Timing): Still Present Home/EMS Treatment: None Severity: None Pain Scale Rating Of: 0 Recent travel outside of the [place]: No Additional History Per: Patient Past Medical History Reviewed: Historical Data, Nursing Documentation, Vital Signs Vital Signs: Last Vital Signs Temp 97.8 F 02/15/18 07:34 Pulse 67 02/15/18 07:34 Resp 18 02/15/18 07:34 BP 102/65 02/15/18 07:34 Pulse Ox 96 02/15/18 10:30 - Medical History PMH: Denies: Chronic Kidney Disease Family History: States: Unknown Family Hx - Social History Hx Alcohol Use: No Hx Substance Use: No - Immunization History Hx Tetanus Toxoid Vaccination: No Hx Influenza Vaccination: No Hx Pneumococcal Vaccination: No Review Of Systems Except As Marked, All Systems Reviewed And Found Negative. Constitutional: Negative for: Fever, Chills Skin: Positive for: Rash (redness to left cheeck and left foot 5th digit) Physical Exam - Physical Exam Appears: Non-toxic, No Acute Distress Skin: Warm, Dry, Other (bug bites to left cheek and left foot 5th digit) Head: Atraumatic, Normacephalic Eye(s): bilateral: Normal Inspection Oral Mucosa: Moist Extremity: Bilateral: Atraumatic, Normal ROM Neurological/Psych: Oriented x3, Normal Speech ED Course And Treatment O2 Sat by Pulse Oximetry: 96 (RA) Pulse Ox Interpretation: Normal Medical Decision Making Medical Decision Making: Pt was given Prednisone. Disposition - Disposition Referrals: Eric Oh, [Non-Staff] - Disposition: HOME/ ROUTINE Disposition Time: 07:25 Condition: GOOD Additional Instructions: SAUD PAGE, thank you for letting us take care of you today. Your provider was Ac Weiss DO and you were treated for BITE. The emergency medical care you received today was directed at your acute symptoms. If you were prescribed any medication, please fill it and take as directed. It may take several days for your symptoms to resolve. Return to the Emergency Department if your symptoms worsen, do not improve, or if you have any other problems. Please contact your doctor or call one of the physicians/clinics you have been referred to that are listed on the Patient Visit Information form that is included in your discharge packet. Bring any paperwork you were given at discharge with you along with any medications you are taking to your follow up visit. Our treatment cannot replace ongoing medical care by a primary care provider outside of the emergency department. Thank you for allowing the [facility] team to be part of your care today. Follow up with your primary care doctor in 2-3 days if you have any concerns. Prescriptions: predniSONE [Prednisone] 40 mg PO DAILY #10 tab Instructions: Insect Bites and Stings (DC) Forms: [employer] ([place]) - Clinical Impression Clinical Impression: Insect bites - Scribe Statement The provider has reviewed the documentation as recorded by the Scribe KP All medical record entries made by the Scribe were at my direction and personally dictated by me. I have reviewed the chart and agree that the record accurately reflects my personal performance of the history, physical exam, medical decision making, and the department course for this patient. I have also personally directed, reviewed, and agree with the discharge instructions and disposition.
== END 2018-02-15 07:34 | disposition home or self-care (01) ==
LOC: C.ER 06:49
DX: S90.862A Insect bite (nonvenomous), left foot, initial encounter (principal); S00.86XA Insect bite (nonvenomous) of other part of head, initial encounter; W57.XXXA Bitten or stung by nonvenomous insect and other nonvenomous arthropods, initial encounter

== ENCOUNTER 2018-06-16 11:04 | Day surgery (SDC) | payer OTHER ==
[2018-06-15 08:42] VITALS: BMI 23.0
[2018-06-16 11:51] VITALS: O2SAT 100
[2018-06-16] MEDS ORDERED: Lidocaine Hydrochloride 20 ML INJ ONE (13:05)
[2018-06-16] MEDS ORDERED: ceFAZolin 1 gm in NS 1 GM/100 ML BAG IVPB ONE (13:06)
[2018-06-16] MEDS ORDERED: Propofol 10 mg/ml Inj (20 ML) ONE ×2 (13:13→13:46)
[2018-06-16] MEDS ORDERED: Midazolam 2 MG/2 ML VIAL ONE (13:13)
[2018-06-16] MEDS: Bupivacaine HCl 0.5% PF (30 ml) Inj ONE ×2 (13:30→13:34)
[2018-06-16] MEDS ORDERED: Bacitracin Ointment 30 GM TUBE ONE (14:56)
--- NOTE | 2018-06-16 15:56 | PCM.SURG1 ---
Surgeon's Initial Post Op Note - Surgeon's Notes Surgeon: SHASTA ChanM Entry Level Recruiter: SHASTA BenavidezM; Dr. Maribell Mckeon DPM PGY-3; Dr. Ivan Gilbert DPM PGY- 2 Type of Anesthesia: General LMA, Local Anesthesia Administered By: Dr. Arambula Pre-Operative Diagnosis: hallux abductovalgus deformity left foot, tailor's bunion deformity left foot Operative Findings: see operative note Post-Operative Diagnosis: same Operation Performed: 1) lapidus bunionectomy with plate and screw fixation left foot. 2) tailor's bunionectomy 5th metatatarsal left foot Specimen/Specimens Removed: bone 1st metatarsal left foot Estimated Blood Loss: EBL {In ML}: 5 Blood Products Given: N/A Drains Used: No Drains Post-Op Condition: Good Date of Surgery/Procedure: 06/16/18 Time of Surgery/Procedure: 13:15
[2018-06-16] MEDS ORDERED: Oxycodone/Acetaminophen 5/325 mg Tab PO PRN ×2 (15:57)
[2018-06-16] MEDS: HYDROmorphone 0.5 mg/0.5 ml ISec IVP PRN ×2 (16:25→16:30)
--- NOTE | 2018-06-16 16:38 | RAD ---
Date of service: 06/16/2018 PROCEDURE: Left Foot Radiographs. HISTORY: s/p left foot susie COMPARISON: None. FINDINGS: BONES: Postoperative findings 1st cuneiform and 1st metatarsal. The 2nd cuneiform is also involved. No evidence of orthopedic hardware failure. JOINTS: Normal. SOFT TISSUES: Normal. OTHER FINDINGS: None. IMPRESSION: Satisfactory postoperative status.
[2018-06-16 17:23] VITALS: BP 115/80; PULSE 78; RESP 18; TEMP 98
--- NOTE | 2018-06-18 03:57 | OP ---
PROCEDURE DATE: 06/16/2018 SURGEON: Jon Humphries DPM SCHOOL TRAFFIC SUPERVISOR: Tanmay Meyer DPM; Rosa Maria Mckeon DPM, PGY-3; Dr. Syeda Gilbert DPM, PGY-2. ANESTHETIS: Matt Ogden DO ANESTHESIA: General LMA with local. PREOPERATIVE DIAGNOSES: 1. Hallux abductus valgus deformity of left foot. 2. Tailor's bunionectomy deformity, left foot. POSTOPERATIVE DIAGNOSES: 1. Hallux abductus valgus deformity of left foot. 2. Tailor's bunionectomy deformity, left foot. PROCEDURES PERFORMED: 1. Lapidus bunionectomy with arthrodesis of first tarsal and metatarsal joint with plate and screw fixation, left foot. 2. Tailor's bunionectomy of first metatarsal, left foot. INDICATIONS: The patient is a 33-year-old female with the above-mentioned diagnoses. The patient is being treated by Dr. Humphries in the office and has exhausted all conservative treatment measures at this time and now requests surgical intervention. The patient signed consent after careful explanation of all risks, benefits, and complications and alternatives to surgical procedure. No guarantees were given nor applied. Ancef 2 g IV was given to the patient prior to the procedure. N.p.o. status was confirmed prior to bringing the patient into the operating room. PREPARATION: The patient was brought into the operating room and placed on the operating room table in the supine position. A well-padded pneumatic thigh tourniquet was placed to the patient's left thigh with plenty of Webril cast padding. After induction of IV sedation, the patient received a total of 20 mL of a 1:1 mixture consisting of 0.5% Marcaine plain with 1% lidocaine plain in local block fashion to the patient's left forefoot. Once local anesthesia was achieved, the left foot was then prepped and draped in the usual sterile manner. Esmarch was utilized to exsanguinate the patient's left foot, and pneumatic thigh tourniquet was then inflated to 300 mmHg, and the procedure was begun. PROCEDURE #1: Lapidus bunionectomy of left foot including arthrodesis of first tarsal and metatarsal joint with plate and screw fixation. Our attention was now directed to the first tarsal and metatarsal joint of the patient's left foot. Using a Montreal elevator, the location of the joint was confirmed using intraoperative fluoroscopy. Next, utilizing a 15 blade, a proximal 8 cm linear longitudinal incision was made over the dorsal aspect of the first tarsal and metatarsal joint causing distally, passed the first metatarsophalangeal joint. Care was taken to involve the contour of the deformity. Care was taken to avoid any vital neurovascular structures, and bleeders were cauterized as they were encountered. Next, a Sanchez elevator was used to reflect the periosteum medially and laterally, thus exposing the first tarsal and metatarsal joint into the operative field as well as the first metatarsophalangeal joint into the operating field. Using a fresh #15 blade, the periosteal and capsular layers were fully reflected medially and laterally, thus exposing the proximal one-third of the base of the first metatarsal and the distal aspect of the medial cuneiform. Next, a sagittal saw was then used to make a [id number] osteotomy of the base of the first metatarsal, oriented in a perpendicular fashion of the shaft of the first metatarsal. A thin wedge of bone was then resected and passed from the field. Next, a sagittal saw was used to make [id number] cut at the distal aspect of the medial cuneiform, oriented in a parallel fashion at the base of the second metatarsal with care taken to take certain more bone laterally than medially, and a wedge of bone was then passed from the field. Using a rongeur, all remaining cartilaginous bleeding achieved. from the joint were then resected from the field. Subchondral drilling was then performed using 0.062 K-wire at the base of the first metatarsal and the distal aspect of the medial cuneiform with cancellous bleeding achieved. Next, a 0.062 K-wire from the set was drilled in a retrograde fashion through the distal aspect of the first metatarsal, aiming for the base of the first metatarsal. At this time, a K-wire was utilized to manipulate the first metatarsophalangeal joint into a more corrected anatomic position. Intraoperative fluoroscopy was utilized to assess the sesamoid position in the intermetatarsal angle, which both appeared to be corrected at this time. The K-wire was then driven further in a retrograde fashion in order to cross the first tarsal and metatarsal joint with correction of the deformity temporarily fixated at this time. An Arthrex medial Lapidus plate was chosen and then placed on the medial aspect of the first tarsal and metatarsal joint. Please note, the plate was then checked using intraoperative imaging at this time. Next, a BB-Mario from the Arthrex set was inserted in one of the proximal holes and also into the distal hole of the plate with excellent position of the plate on the bone contour noted at this time. Next, using standard AO principles and techniques, a 4.0 cancellous interfragment lag screw was inserted in the plate in the center hole in the eccentric position to allow for compression across the joint at this time. Care was taken to aim this screw to the proximal lateral aspect of the medial cuneiform, which was checked using intraoperative fluoroscopy. This screw was not entirely taken down at this time. Next, the BB-Mario at the distal aspect of the plate was removed, and a 3.5 cortical screw was inserted across the drill hole at this time using standard AO principles and technique. Next, the BB-Mario of the proximal aspect of the plate was removed using standard AO principles and technique, a 3.5 locking screw was then inserted in its place across the proximal aspect of the plate to the bone. Lastly, using standard AO principles and technique, a 3.5 locking screw was then inserted into the remaining distal hole of the plate. All locking screws were not locked at this time. Next, our attention was returned to the interfragment lagging screw which was then fully tightened down with excellent compression achieved across the joint site at this time. There were many locking screws had been locked into place. Again, intraoperative fluoroscopy was utilized to assess correction of deformity at this time which appears to be excellent. Surgical site was flushed with copious amounts of sterile normal saline solution. Our attention was now directed to the medial eminence of the first metatarsophalangeal joint which was resected, very hypertrophic dome, which was then passed from the operative field and sent for pathology. Any roughened pieces were then smoothed down further with the sagittal blade. Surgical site was then flushed with copious amounts of sterile normal saline solution. The capsular and periosteal layers were reapproximated using 2-0 and 3-0 Vicryl. Subcutaneous tissue was reapproximated using 3-0 Vicryl. Subcuticular tissue was reapproximated using 4-0 Vicryl, and skin edges were reapproximated using 4-0 nylon suture. PROCEDURE #2: Tailor's bunionectomy of fifth metatarsal, left foot. Our attention was now directed to the fifth metatarsophalangeal joint of the patient's left foot for a prominent lateral eminence of the fifth metatarsal head can be appreciated at this time. Proximally, a 4 cm linear incision was made directly over the fifth metatarsophalangeal joint extending proximal. Care was taken to avoid all vital neurovascular structures, and bleeders were cauterized as necessary. The insertion was then deepened down to the level of the periosteum where a sharp linear insertion was made directly over the lateral aspect of the bone and taken care to avoid any tenderness structures at this time. A Montreal elevator was utilized to reflect the periosteum medially and laterally, thus exposing the head and shaft of the fifth metatarsal in the operative site. Next, using a sagittal saw, the lateral eminence was resected and passed from the operative field and sent to the pathology. Any roughened edges were then smoothed down using a rasp. The surgical site was flushed with copious amounts of sterile normal saline solution. Correction of deformity appeared to be excellent at this time. The periosteal tissue was reapproximated using 2-0 Vicryl. Capsular layer was reapproximated using 3-0 Vicryl. Subcutaneous tissue was reapproximated using 3-0 Vicryl. Subcuticular was reapproximated using 4-0 Vicryl, and the skin edges were reapproximated using 4-0 Prolene suture. Postoperative injection including 20 mL of 0.5% Marcaine plain was introduced into position, medical and lateral forefoot at this time and also to the proximal aspect of the midfoot. A well-padded posterior splint was then applied to the patient's left lower extremity with the foot positioned in a dorsiflex neutral position. The patient will be strictly nonweightbearing. POSTOPERATIVE CONDITION: The patient tolerated the procedure and the anesthesia well. No apparent complications or complaints. The patient was exported from the OR to the recovery room with vital signs stable and neurovascular structures intact to the patient's left foot. The patient will follow up with Dr. Humphries in the office within one week. Rosa Maria Mckeon DPM Joneric Humphries DPM MTDLee
== END 2018-06-16 18:25 | disposition home or self-care (01) ==
LOC: C.SDS 11:04
PROVIDERS: ATTEND Podiatrist Foot & Ankle Surgery
DX: M20.12 Hallux valgus (acquired), left foot (principal); M21.622 Bunionette of left foot
CPT/HCPCS: 28296; 28297; 28308; 73620; 88307; J0690; J1170; J2250; J2704; J3010

== ENCOUNTER 2018-07-01 15:48 | Emergency (ER) | payer OTHER ==
[2018-07-01 15:48] VITALS: BMI 23.0
[2018-07-01 16:09] VITALS: RESP 20
[2018-07-01] MEDS ORDERED: Sodium Chloride 0.9% 1,000 ML IV ONE (17:14)
[2018-07-01 17:25] LABS: BASO % 0.3 % (0.0-2.0); EOS % 0.4 % (0.0-4.0); HEMOGLOBIN 13.3 g/dL (11.0-16.0); LYMPH # 0.6 K/uL (1.0-4.3); LYMPH % 6.9 % (20.0-40.0); MEAN CELL VOLUME 87.4 fL (81.0-99.0); MEAN CORPUSCULAR HGB CONC 33.2 g/dL (33.0-37.0); MEAN PLATELET VOLUME 9.4 fL (7.2-11.7); MONO # 0.3 K/uL (0.0-0.8); MONO % 3.2 % (0.0-10.0); NEUT # 7.9 K/uL (1.8-7.0); NEUT % 89.2 % (50.0-75.0); PLATELET COUNT 356 K/uL (130-400); RBC 4.59 Mil/uL (3.80-5.20); RED CELL DISTRIBUTION WIDTH 12.1 % (11.5-14.5); WHITE BLOOD COUNT 8.8 K/uL (4.8-10.8)
[2018-07-01] MEDS ORDERED: Sodium Chloride 0.9% 1,000 ML ONE (17:32)
[2018-07-01 17:36] LABS: SQUAMOUS EPITHIAL 1 /hpf (0-5); URINE BILIRUBIN NEGATIVE (NEGATIVE); URINE BLOOD NEGATIVE (NEGATIVE); URINE CLARITY Clear (Clear); URINE COLOR Yellow (YELLOW); URINE GLUCOSE (UA) NORMAL (Normal); URINE HYALINE CAST 0-2 /lpf (0-2); URINE LEUKOCYTE ESTERASE NEG Leu/uL (Negative); URINE PROTEIN NEGATIVE (NEGATIVE); URINE UROBILINOGEN NORMAL mg/dL (0.2-1.0)
[2018-07-01 17:41] LABS: ALB/GLOB RATIO 1.5 (1.0-2.1); ALBUMIN 4.7 g/dL (3.5-5.0); ALT/SGPT 15 U/L (9-52); AST/SGOT 24 U/L (14-36); BLOOD UREA NITROGEN 13 mg/dL (7-17); CALCIUM 9.3 mg/dl (8.6-10.4); GFR NON-AFRICAN AMERICAN > 60; LIPASE 55 U/L (23-300)
--- NOTE | 2018-07-01 18:14 | C.PDOC ---
Time Seen by Provider: 07/01/18 16:54 Chief Complaint (Nursing): Abdominal Pain Past Medical History Vital Signs: Last Vital Signs Temp 97.8 F 07/01/18 16:08 Pulse 84 07/01/18 16:08 Resp 20 07/01/18 16:08 BP 109/69 07/01/18 16:08 Pulse Ox 100 07/01/18 16:08 - Medical History PMH: Denies: Chronic Kidney Disease Family History: States: Unknown Family Hx - Social History Hx Alcohol Use: No Hx Substance Use: No - Immunization History Hx Tetanus Toxoid Vaccination: No Hx Influenza Vaccination: No Hx Pneumococcal Vaccination: No ED Course And Treatment - Laboratory Results Result Diagrams: 07/01/18 17:19 07/01/18 17:19 O2 Sat by Pulse Oximetry: 100 Disposition - Disposition - 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 - Scribe Statement The provider has reviewed the documentation as recorded by the Scribe Chen Peters All medical record entries made by the Kenibe were at my direction and personally dictated by me. I have reviewed the chart and agree that the record accurately reflects my personal performance of the history, physical exam, medical decision making, and the department course for this patient. I have also personally directed, reviewed, and agree with the discharge instructions and disposition.
--- NOTE | 2018-07-01 18:23 | C.PDOC ---
History Of Present Illness 33 year old female presents to the ED complaining of epigastric burning abdominal pain for one day status post eating a salad that contained red onions. Associated symptoms include nausea, vomiting, body aches, diarrhea and chills. D enies taking any medications for the symptoms. Denies any sick contacts or recent travels. LNMP: 06/09/18. PMD: Dr. Fragoso Time Seen by Provider: 07/01/18 16:54 Chief Complaint (Nursing): Abdominal Pain History Per: Patient History/Exam Limitations: no limitations Onset/Duration Of Symptoms: Days Current Symptoms Are (Timing): Still Present Location Of Pain/Discomfort: Diffuse Radiation Of Pain To:: None Associated Symptoms: Chills, Nausea, Vomiting, Diarrhea. denies: Fever, Back Pain, Chest Pain, Constipation, Urinary Symptoms Past Medical History Reviewed: Historical Data, Nursing Documentation, Vital Signs Vital Signs: Last Vital Signs Temp 97.8 F 07/01/18 16:08 Pulse 84 07/01/18 16:08 Resp 20 07/01/18 16:08 BP 109/69 07/01/18 16:08 Pulse Ox 100 07/01/18 16:08 - Medical History PMH: No Chronic Diseases Denies: Chronic Kidney Disease Surgical History: (x3) Family History: States: No Known Family Hx - Social History Hx Alcohol Use: No Hx Substance Use: No - Immunization History Hx Tetanus Toxoid Vaccination: No Hx Influenza Vaccination: No Hx Pneumococcal Vaccination: No Review Of Systems Constitutional: Positive for: Chills, Other (bodyaches ). Negative for: Fever Cardiovascular: Negative for: Chest Pain Gastrointestinal: Positive for: Nausea, Vomiting, Abdominal Pain, Diarrhea Genitourinary: Negative for: Dysuria, Hematuria Musculoskeletal: Negative for: Back Pain Physical Exam - Physical Exam Appears: Non-toxic, No Acute Distress Skin: Warm, Dry, No Rash Head: Atraumatic, Normacephalic Eye(s): bilateral: PERRL, EOMI Oral Mucosa: Dry (mild ) Neck: Supple Chest: Symmetrical Cardiovascular: Rhythm Regular, Other (tachycardic) Respiratory: No Rales, No Rhonchi, No Wheezing, Other (CTA B/L) Gastrointestinal/Abdominal: Bowel Sounds (normoactive), Soft, No Tenderness, No Distention, No Guarding, No Rebound Extremity: No Calf Tenderness, No Swelling Neurological/Psych: Oriented x3, Normal Speech Gait: Steady ED Course And Treatment - Laboratory Results Result Diagrams: 07/01/18 17:19 07/01/18 17:19 O2 Sat by Pulse Oximetry: 100 (RA) Pulse Ox Interpretation: Normal Medical Decision Making Medical Decision Making: Plan - Bloodwork - Pepcid 20mg IVP - Zofran 4mg IVP - IV fluids - POC urine 1845 pt feeling better, re-eval of abodmen- soft, nd. nt. pt still feels some chills, and body aches. will prescribe tylenol. pmd f/u fri Disposition Counseled Patient/Family Regarding: Studies Performed, Diagnosis, Need For Followup, Rx Given - Disposition Referrals: Estephania Fragoso MD [Medical Doctor] - Disposition: HOME/ ROUTINE Disposition Time: 18:50 Condition: IMPROVED Additional Instructions: Dalila ms lquidos en pequeas cantidades a la vez. Hilda medicamentos contra las nuseas antes de las comidas. [place] pepcid maude vez al da .. Tylenol para marcos corporales o fiebre. [place] arroz simple, pltano, t, tostadas. Cole un seguimiento con oliver mdico el viernes. Regrese a la [place] de emergencias si tiene vmitos persistentes, dolor ms intenso u otras inquietudes. Medicine sent to [facility] on [address] Drink increased fluids in small amounts at a time. Take anti nausea medicine before meals. Take pepcid one time a day.. Tylenol for body aches or fever. Eat plain rice, banana, tea, toast. Follow up wiht your doctor on Friday. Return to ER if persistent vomiting, worse pain or or other concerns. 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 - Scribe Statement The provider has reviewed the documentation as recorded by the Scribe Chen Peters All medical record entries made by the Scribe were at my direction and personally dictated by me. I have reviewed the chart and agree that the record accurately reflects my personal performance of the history, physical exam, medical decision making, and the department course for this patient. I have also personally directed, reviewed, and agree with the discharge instructions and disposition.
[2018-07-01 18:59] LABS: EOSINOPHIL 2 % (0-4); LYMPHOCYTE 12 % (20-40); MONOCYTE 5 % (0-10); NEUTROPHIL 81 % (50-75); PLATELET ESTIMATE NORMAL (NORMAL); TOTAL CELLS COUNTED 100
[2018-07-01 19:21] VITALS: BP 104/67; PULSE 94; TEMP 99.8; O2SAT 98
== END 2018-07-01 19:30 | disposition home or self-care (01) ==
LOC: C.ER 15:48
DX: K52.9 Noninfective gastroenteritis and colitis, unspecified (principal)
CPT/HCPCS: 80053; 81001; 83690; 85025; 96374; 96375; 99284; J2405; J7030